=== PATIENT | female | born 1980 | race Hispanic/Latino ===

== ENCOUNTER 2018-01-13 06:27 | Day surgery (SDC) | payer MEDICAID ==
[2018-01-13] MEDS ORDERED: WATER FOR IRRIG STERILE IR ONE (07:16)
[2018-01-13] MEDS ORDERED: HURRICAINE ONE 20% TOPICAL SPRAY MM ×2 (07:30→07:47)
[2018-01-13] MEDS ORDERED: DIPRIVAN 10 MG/ML IV ONE ×2 (07:36→07:37)
[2018-01-13] MEDS ORDERED: XYLOCAINE MPF 2% ONE (07:41)
--- NOTE | 2018-01-13 07:46 | Anesthesia Consultation ---
Anesthesia Consult and Med Hx Date of service: 01/13/18 - Airway Anesthetic Teeth Evaluation: Partials (upper, removed) ROM Head & Neck: Adequate Mental/Hyoid Distance: Adequate Mallampati Class: Class III Intubation Access Assessment: Possibly Difficult - Pulmonary Exam CTA: Yes - Cardiac Exam Cardiac Exam: RRR - Pre-Operative Health Status ASA Pre-Surgery Classification: ASA3 Proposed Anesthetic Plan: MAC - Cardiovascular System Hx Hypertension: Yes - Gastrointestinal Hx Gastroesophageal Reflux Disease: Yes - Hematic Hx Anemia: Yes - Other Systems Hx Obesity: Yes
--- NOTE | 2018-01-13 07:46 | Anesthesia Day of Surgery ---
Anesthesia Day of Surgery - Day of Surgery Patient Examined: Yes Patient H&P Reviewed: Yes Patient is NPO: Yes
[2018-01-13] MEDS ORDERED: NACL 0.9% 1000 ML 1,000 ML IV SCH (08:00)
--- NOTE | 2018-01-13 08:04 | Operative Report ---
Operative Report Operative Report: EGD Post bypass DATE: 01/13/18 OPERATIVE REPORT - EGD PREOP DIAGNOSIS: gastric dyspepsia POSTOP DIAGNOSIS: same SURGERY: Upper endoscopy. SURGEON:Dr. Kenroy Matthew BOTTOM HOOP DRIVER: Cruz Ervin DO TYPE OF ANESTHESIA: MAC. ESTIMATED BLOOD LOSS: None. COMPLICATIONS: None. SPECIMENS REMOVED: None. FINDINGS: 1. normal esophagus 2. gastric pouch - 50ml 3. gastrojejunal anastomosis is 30mm INDICATIONS:INDICATION FOR PROCEDURE: Patient is a 37-year-old F s/p gastric bypass in 2010. The patient is here today for evaluation for revisional surgery. The patient is here for a planned EGD for gastric dyspepsia. She also c /o of diarrhea. PROCEDURE DETAILS: After consent was reviewed, patient was taken back to the operating room where patient was placed in the left lateral decubitus position and a bite block was placed in the mouth. After a time-out was called, MAC anesthesia was initiated. I then passed the endoscope into the patients oropharynx, into the esophagus, visualized the entire esophagus, which was all within normal limits. I then visualized the gastric pouch which was normal and about 50ml in size. The gastrojejunal anastomosis was normal at about 30mm. The proximal portion of the lara limb was normal. I then desufflated the gastric pouch and removed the endoscope. Patient tolerated procedure well and was transferred to recovery room in good and stable condition
--- NOTE | 2018-01-13 08:05 | Discharge Summary ---
Providers - Providers Attending physician: MONTRELL JASMINE Primary care physician: ALBIN HAWTHORNE Hospitalization Condition: Good Procedures: egd Hospital course: 37 y.o F presented for EGD to evaluate her current gastric bypass. She tolerated the procedure well. She was discharged the same day. Disposition: DC-01 TO HOME OR SELFCARE Core Measure Documentation - Palliative Care Palliative Care/ Comfort Measures: Not Applicable - Core Measures Any of the following diagnoses?: none Exam - Physical Exam Narrative exam: no changes from prior - Constitutional Vitals: Temp Pulse Resp BP Pulse Ox 97.7 F 72 14 132/78 97 01/13/18 07:35 01/13/18 07:35 01/13/18 07:35 01/13/18 07:35 01/13/18 07:35 Plan Activity: no restrictions Additional Instructions: follow up with Dr. Jasmine in office. Follow up with: ALBIN HAWTHORNE MD [Primary Care Provider] - 7 Days
[2018-01-13 08:33] VITALS: BP 121/75
--- NOTE | 2018-01-13 14:50 | Post Anesthesia Evaluation ---
- Post Anesthesia Evaluation Patient Participated: Yes Airway Patent: Yes Stable Respiratory Function: Yes Nausea/Vomiting: No Temp > 96.8F: Yes Pain Manageable: Yes Adequeate Hydration: Yes Anesthesia Complications: No
== END 2018-01-13 06:28 | disposition home or self-care (01) ==
LOC: GIO 06:27
PROVIDERS: ATTEND Specialist
DX: R10.13 Epigastric pain (principal); R19.7 Diarrhea, unspecified; K21.9 Gastro-esophageal reflux disease without esophagitis; I10 Essential (primary) hypertension; M19.90 Unspecified osteoarthritis, unspecified site; E66.01 Morbid (severe) obesity due to excess calories; F41.9 Anxiety disorder, unspecified; F32.9 Major depressive disorder, single episode, unspecified; F51.02 Adjustment insomnia; Z68.43 Body mass index [BMI] 50.0-59.9, adult; Z98.890 Other specified postprocedural states; Z98.51 Tubal ligation status; Z98.0 Intestinal bypass and anastomosis status
CPT/HCPCS: 43235; J2704; J7030

== ENCOUNTER → 2018-03-12 | Outpatient (CLI) | payer MEDICAID | LOC: SLR 11:00 | PROVIDERS: ATTEND Otolaryngology | DX: G47.30 Sleep apnea, unspecified (principal) | CPT/HCPCS: G0399 ==